=== PATIENT | male | born 1990 | race Hispanic/Latino ===

== ENCOUNTER 2020-08-05 21:22 | Emergency (ER) | payer SELFPAY ==
[~2020-08-05] VITALS: Ht 180.3 cm; Wt 127.0 kg
== END 2020-08-05 22:38 | disposition home or self-care (01) ==
LOC: ED 21:22
DX: S93.602A Unspecified sprain of left foot, initial encounter (principal); F17.200 Nicotine dependence, unspecified, uncomplicated; X50.9XXA Other and unspecified overexertion or strenuous movements or postures, initial encounter
CPT/HCPCS: 73630; 99283-25